=== PATIENT | female | born 1950 | race Caucasian/White ===

== ENCOUNTER → 2016-09-14 | Outpatient (CLI) | payer MEDICARE, OTHER | END | disposition home or self-care (01) | LOC: PCVCCLINIC 15:33 | PROVIDERS: ATTEND Internal Medicine | DX: I42.9 Cardiomyopathy, unspecified (principal); I50.9 Heart failure, unspecified; I48.91 Unspecified atrial fibrillation; E78.5 Hyperlipidemia, unspecified; E66.9 Obesity, unspecified; Z79.01 Long term (current) use of anticoagulants | CPT/HCPCS: 80061; 93005; G0463 ==

== ENCOUNTER → 2017-04-11 | Outpatient (CLI) | payer MEDICARE, OTHER | END | disposition home or self-care (01) | LOC: PCVCCLINIC 15:00 | PROVIDERS: ATTEND Internal Medicine | DX: I48.2 Chronic atrial fibrillation (principal); I42.8 Other cardiomyopathies; I50.22 Chronic systolic (congestive) heart failure; E66.01 Morbid (severe) obesity due to excess calories; E78.5 Hyperlipidemia, unspecified; Z79.01 Long term (current) use of anticoagulants | CPT/HCPCS: 80061; 93005; G0463 ==

== ENCOUNTER → 2018-04-17 | Outpatient (CLI) | payer MEDICARE, OTHER | END | disposition home or self-care (01) | LOC: PCVCCLINIC 15:58 | PROVIDERS: ATTEND Internal Medicine | DX: I48.2 Chronic atrial fibrillation (principal); I50.22 Chronic systolic (congestive) heart failure; I42.8 Other cardiomyopathies; E78.5 Hyperlipidemia, unspecified | CPT/HCPCS: 80061; 93005; G0463 ==

== ENCOUNTER → 2018-05-06 | Outpatient (CLI) | payer MEDICARE, OTHER ==
--- NOTE | 2018-05-07 09:23 | PCVCIMAG ---
APPROVED REPORT Study performed: 05/06/2018 14:51:32 EXAM: Comprehensive 2D, Doppler, and color-flow Echocardiogram Patient Location: Echo lab Room #: 2Status: routine BSA: 2.21 HR: 87 bpm Rhythm: NSR Other Information Study Quality: Fair Risk Factors: Cardiac Risk Factors: Hyperlipidemia Indications Congestive Heart Failure Atrial Fibrillation Cardiomyopathy 2D Dimensions LVEF(%): 51.04 (>50%) IVSd: 9.47 (7-11mm)LVOT Diam: 20.42 (18-24mm) LVDd: 42.51 mm PWd: 10.58 (7-11mm)Ascending Ao: 26.26 (22-36mm) LVDs: 31.55 (25-40mm) Left Atrium: 47.51 (27-40mm) Aortic Root: 23.26 mm LV Single Plane 4CH: 46.89 % LV Single Plane 2CH: 59.83 %Soto's LVEF: 53.36 % Volumes Left Atrial Volume (Systole) Single Plane 2CH: 63.24 mL Biplane LA Volume: 71.00 mLLA ESV Index: 32.00 mL/m2 Aortic Valve AoV Peak Edy.: 1.30 m/s AO Peak Gr.: 6.96 mmHgLVOT Max P.45 mmHg LVOT Max V: 0.55 m/s TITO Vmax: 1.40 cm2 Mitral Valve MV E Max Edy.: 1.07 m/s MV PHT: 41.66 ms MVA (PHT): 5.28 cm2 Pulmonary Valve PV Peak Edy.: 0.97 m/sPV Peak Gr.: 3.81 mmHg Tricuspid Valve TR Peak Edy.: 2.86 m/s TR Peak Gr.: 32.64 mmHg TV Vmax: 1.04 m/sPA Pressure: 40.00 mmHg Left Ventricle The left ventricle is normal size. Regional wall motion abnormalities cannot be excluded. There is normal left ventricular wall thickness. Left ventricular systolic function is mildly decreased. LVEF 45-50%. This study is not technically sufficient to allow evaluation of the LV diastolic function due to atrial fibrillation. Right Ventricle The right ventricle is normal size. The right ventricular systolic function is normal. Atria Left atrium is at the upper limits of normal. The right atrium size is normal. Aortic Valve Aortic valve is trileaflet, mildly sclerotic. No aortic regurgitation is present. There is no aortic valvular stenosis. Mitral Valve The mitral valve is normal in structure. There is no mitral valve regurgitation noted. There is normal mitral valve excursion. Tricuspid Valve The tricuspid valve is normal in structure. Mild tricuspid regurgitation with a PA pressure of 40 mmHg. Pulmonic Valve The pulmonary valve is normal in structure. Trace pulmonic regurgitation. Great Vessels The aortic root is normal in size. Aortic arch is normal in caliber. IVC is normal in size and collapses <50% with inspiration. Pericardium There is no pericardial effusion. <Conclusion> Left ventricular systolic function is mildly decreased. LVEF 45-50%. Aortic valve is trileaflet, mildly sclerotic. No aortic regurgitation or stenosis. The mitral valve is normal in structure. No mitral valve regurgitation. Mild tricuspid regurgitation with a pulmonary artery pressure of 40 mmHg. There is no pericardial effusion.
== END | disposition home or self-care (01) ==
LOC: PCVCIMAG 15:36
PROVIDERS: ATTEND Internal Medicine
DX: I07.1 Rheumatic tricuspid insufficiency (principal); I50.9 Heart failure, unspecified; I42.9 Cardiomyopathy, unspecified; I48.91 Unspecified atrial fibrillation; E78.5 Hyperlipidemia, unspecified
CPT/HCPCS: 93306

== ENCOUNTER → 2019-06-24 | Outpatient (CLI) | payer MEDICARE, OTHER | END | disposition home or self-care (01) | LOC: PCVCCLINIC 14:45 | PROVIDERS: ATTEND Internal Medicine | DX: I48.21 Permanent atrial fibrillation (principal); R94.31 Abnormal electrocardiogram [ECG] [EKG]; I42.8 Other cardiomyopathies; I50.22 Chronic systolic (congestive) heart failure; E78.5 Hyperlipidemia, unspecified; E66.01 Morbid (severe) obesity due to excess calories; Z79.01 Long term (current) use of anticoagulants; Z79.899 Other long term (current) drug therapy | CPT/HCPCS: 36415; 80061; 93005; G0463 ==